=== PATIENT | male | born 1950 | race Caucasian/White ===

== ENCOUNTER 2020-04-10 10:01 | Emergency (ER) | payer MEDICARE, BC, SELFPAY ==
[2020-04-10 10:12] VITALS: BP 96/83; PULSE 92; RESP 18; TEMP 37.1; O2SAT 92; BMI 26.4
--- NOTE | 2020-04-10 10:18 | ECG_ITS ---
[facility] Test Date: 2020-04-10 Pat Name: Chinedu Petty Department: Room: Gender: Male Director Surgical: : 1950 Requested By: Aisha Eduardo Order Number: [id number] Vaishnavi MD: Nicole Hughes M.D. Measurements Intervals [place] Rate: 83 P: 50 [place]: 134 QRS: -23 QRSD: 105 T: 40 QT: 369 QTc: 434 Interpretive Statements SINUS RHYTHM BORDERLINE LEFT AXIS DEVIATION [QRS AXIS < -20] INCOMPLETE RIGHT BUNDLE BRANCH BLOCK [90+ ms QRS DURATION, TERMINAL R IN V1/V2, 40+ ms S IN I/aVL/V4/V5/V6] Compared to ECG 07/22/2018 09:04:01 Incomplete right bundle-branch block now present Sinus tachycardia no longer present ST (T wave) deviation no longer present Electronically Signed On 04-10-2020 16:32:08 CDT by Nicole Hughes M.D. [id number]
--- NOTE | 2020-04-10 10:18 | XRR_ITS ---
PROCEDURE INFORMATION: Exam: XR Chest, 1 View Exam date and time: 04/10/2020 10:26 AM Age: 69 years old Clinical indication: Other: Syncope TECHNIQUE: Imaging protocol: XR of the chest Views: Frontal portable upright view of the chest. COMPARISON: CT chest con [id number] 04/21/2019 9:06 AM FINDINGS: Lungs: The pulmonary vasculature is normal. Left medial infrahilar pulmonary consolidative density. Mild left basilar pulmonary subsegmental atelectasis. Lateral bilateral mid-lower lung zone subsegmental atelectasis. Pleural space: No pleural effusion. No pneumothorax. Heart/Mediastinum: The heart is normal in size and contour. Mediastinum: Stable. Vasculature: Mild aortic arch atherosclerotic calcification without ectasia. Bones/joints: Stable. XR/XR chest 1V portable [id number] IMPRESSION: 1. Left medial infrahilar pulmonary consolidative density. Pneumonitis is difficult to exclude. Clinical correlation is recommended. 2. Mild left basilar pulmonary subsegmental atelectasis. 3. Lateral bilateral mid-lower lung zone subsegmental atelectasis.
[2020-04-10 11:09] VITALS: BP 86/71; PULSE 87; RESP 19; O2SAT 90
[2020-04-10 11:12] LABS: Basophils % 0.2 %; Hematocrit 39.6 % (42.0-52.0); Hemoglobin 12.6 g/dL (11.7-16.6); Lymphocytes # 0.9 10^3/uL (0.8-4.8); Lymphocytes % 18.8 %; Mean Corpuscular HGB Conc 31.8 g/dL (30.0-36.0); Mean Corpuscular Hemoglobin 30.4 pg (28.0-34.0); Mean Corpuscular Volume 95.7 fL (80-94); Monocytes # 0.3 10^3/uL (0.2-0.9); Monocytes % 6.5 %; Neutrophils # 3.42 10^3/uL (1.8-7.7); Neutrophils % 74.1 %; Nucleated Red Blood Cells % 0 %; Platelet Count 140 10^3/cmm (130-400); Red Blood Count 4.14 10^6/uL (4.1-5.3); Red Cell Distribution Width 13.2 % (12.1-15.1); White Blood Count 4.6 10^3/uL (4.0-10.0)
[2020-04-10] MEDS: sodium chloride 0.9% 500 ML 999 ML IV (11:14)
[2020-04-10] MEDS: dexamethasone 10 mg/mL INJ IVP (11:14)
[2020-04-10 11:26] LABS: Fibrinogen 615 mg/dL (174-498)
[2020-04-10 11:29] LABS: D Dimer 2.23 ug/mIFEU (0-0.59)
--- NOTE | 2020-04-10 11:30 | PC.NURSE ---
Spoke with pt's Cherise regarding pt status. Cherise notified at the time of speaking with her that pt labs had not come back yet and there was no disposition. Requested she call back in an hour or so for more information.
[2020-04-10 11:32] LABS: Lactate (Lactic Acid level) 0.8 mmol/L (0.5-2.2)
[2020-04-10 11:38] LABS: Influenza A by IFA Negative (Negative); Influenza B by IFA Negative (Negative)
--- NOTE | 2020-04-10 11:38 | CT_ITS ---
WS: [id number] CTA OF THE CHEST WITH PULMONARY EMBOLISM PROTOCOL TECHNIQUE: High-resolution contrast enhanced CTA of the chest with coronal and sagittal reformatted i mages with pulmonary embolism protocol. MIP images are also reviewed. CLINICAL INFORMATION: COVID + COMPARISON: None. DLP: 579.[address] scans at [facility] use at least one of these dose optimization techniques: automat ed exposure control; mA and/or kV adjustment per patient size (includes targeted exams where dose is matched to clinical indication); or iterative reconstruction. FINDINGS: Proximal main pulmonary arteries are normal. Normal segmental and subsegmental pulmonary arteries. No evidence for pulmonary embolus. Normal caliber thoracic aorta. A few prominent anterior mediastinal and peribronchial lymph nodes likely reactive. Moderate chronic emphysematous changes. A few scattered hazy groundglass infiltrates in the right upp er lobe, right lower lobe, and left lower lobe. Recommend correlation for viral pneumonia. No axillar y lymphadenopathy. Adrenal glands are normal. Partially visualized hepatic cyst. Gallbladder partially visualized and co ntracted. Small esophageal hiatal hernia. Partially visualized left renal cyst. CT/CT angio chest PE protcl [id number] IMPRESSION: 1. No evidence for pulmonary embolus. 2. A few scattered hazy groundglass infiltrates in the right upper lobe, right lower lobe, left lower lobe posteriorly.Correlation for viral pneumonia. 3. No pleural fluid. 4. Normal caliber thoracic aorta. 5. A few enlarged peribronchial lymph nodes likely reactive. 6. Small esophageal hiatal hernia.
--- NOTE | 2020-04-10 11:38 | ED_ITS ---
Documented by User: HARVEY Silverman 04/11/20 07:08 HPI - COVID General: Chief Complaint: Fever Stated Complaint: covid +/fever Time Seen by Provider: 04/10/20 10:04 Triage information: No fever, cough or shortness of breath . No known COVID + exposure last 14 days History of Present Illness: HPI Narrative: Pleasant 69-year-old male patient presents to the emergency department with 2-week onset of cough congestion. Positive Covid results, [facility] SARS PCR 04/09/2020. He reports continued cough, shortness of breath, not feeling well. Oxygen saturation on room air 89%. He states continues to cough, unable to take deep breaths. MD complaint: known COVID positive Prior covid testing: yes, results known Prior testing date: 04/09/20 COVID 19 common symptoms: positive fever(s), chills, cough, productive cough (gren to clear), dyspnea, fatigue and body aches; negative headache(s), throat pain, nausea or vomiting COVID 19 other sytmptoms: negative chest pain Onset (ago): week(s) (2) Severity: moderate Treatment prior to arrival: acetaminophen and ibuprofen COVID Results: No Data to Display Review of Systems General: Reports: 10 or more systems reviewed and unremarkable except in HPI and below Const: Reports: fever(s), chills, body aches, fatigue and malaise Eyes: Denies: blurry vision or eye redness ENMT: Denies: throat pain, dental pain or disequilibrium Card: Denies: chest pain, palpitations or irregular heart rhythm Resp: Reports: dyspnea, productive cough (gren to clear), pain on inspiration and chest congestion GI: Denies: abdominal pain, nausea or vomiting : Denies: dysuria Musc: Denies: back pain Skin/Breast: Denies: rash or pruritus Neuro: Denies: headache(s), weakness in extremities or behavioral changes Benito/Lymph: Denies: easy bruising PFSH ED PFSH: Family History Mother CAD (coronary artery disease) Brother Cancer Father Heart disease Social History Smoking and tobacco status: former smoker Quit status (tobacco): has quit using tobacco Year quit tobacco: 1991 Alcohol intake: current Alcohol intake frequency: 0-2 Drinks per Day History of recent travel: No Physical Exam Const: COMMON NORMALS: no acute distress, patient oriented x3, healthy appearing and alert GENERAL APPEARANCE: cooperative, comfortable and ill appearing; not well hydrated NUTRITIONAL APPEARANCE: thin ORIENTATION/CONSCIOUSNESS: Yes awake, Yes oriented to person, Yes oriented to place and Yes oriented to time HENMT: COMMON NORMALS: normocephalic, Normal external nose present and moist oral mucous membranes HEAD & SCALP: normocephalic NOSE: Normal external nose present Eye: COMMON NORMALS: Equal, round and reactive pupils present and EOMs intact bilaterally GENERAL EYE: appearance normal, both eyes and all related structures PUPIL: Yes Equal, round and reactive pupils present Neck/C-Spine: COMMON NORMALS: full ROM and no lymphadenopathy GENERAL: Yes normal visual inspection and Yes trachea midline CERVICAL SPINE: Yes cervical ROM normal Lymph: LYMPHATIC: no lymphadenopathy noted Chest: COMMONS NORMALS: normal inspection of the chest and normal palpation of entire chest wall Resp: COMMON NORMALS: normal respiratory effort EFFORT & INSPECTION: Yes able to speak in complete sentences AUSCULTATION: wheezes scattered wheezes Cardio: COMMON NORMALS: regular rhythm, S1 normal heart sound present, S2 normal heart sound present and Peripheral pulses 2+ throughout RHYTHM: regular rhythm HEART SOUNDS: S1 normal heart sound present and S2 normal heart sound present PERIPHERAL PULSES: Peripheral pulses 2+ throughout GI: COMMON NORMALS: Soft to palpation and non-tender INSPECTION: Yes normal to inspection PALPATION: Yes Soft to palpation : COMMON NORMALS: Yes no CVA tenderness BLADDER/KIDNEY EXAM: Yes no CVA tenderness Back/Pelvis: COMMON NORMALS: no CVA tenderness and thoracic and lumbar spine normal to inspection Extremity: COMMON NORMALS: normal to inspection and capillary refill normal Neuro: COMMON NORMALS: patient oriented x3 and no focal motor deficits SENSORIUM/ORIENTATION: Yes alert, Yes oriented to person, Yes oriented to place and Yes oriented to time Psych: COMMON NORMALS: mental status grossly normal, Normal thought process present and cooperative ACTIVITY/MOTOR BEHAVIOR: Yes appropriate eye contact THOUGHT PROCESS: Normal thought process present Skin: COMMON NORMALS: no rashes or lesions noted and turgor normal GENERAL SKIN EXAM: no rashes or lesions noted and turgor normal Course ED course: Pleasant 69-year-old male patient presents to the emergency department with hypoxia related to COVID-19 illness. D-dimer was found to be elevated along with fibrinogen, CRP, ESR, troponin levels. 2-hour troponin level with negative delta noted. Oxygen saturation remained 89 to 90% in the ED. Patient placed on 2 L nasal cannula with oxygen saturation increased to 94%. I discussed my concern in regards to his illness. Noted hypoxia with elevated coagulation factors noted. He agrees to stay for IV remdesivir. Patient received dexamethasone 10 mg IV here in the ED. Home medication includes Pepcid. EKG series without changes. Case discussed with Dr. Irby. Transfer of care to Dr. Irby as patient will require hospitalization. Patient agrees with need for hospitalization and agrees with treatment. 1700 -patient reports he did not wish to be transferred to another facility due to bed unavailability here at [facility]. He states does not want to be away from his . Oxygen saturation on 2 L nasal cannula maintaining 96 to 97%. He has tolerated p.o. fluids here in the ED without nausea vomiting. He did receive dose of Remdesivir here in the ED. He agrees to return to the emergency de partment if he develops hypoxia, worsening symptoms such as nausea vomiting, inability to catch his breath. He also agrees to follow-up with his primary care provider in 2 to 3 days. He was taken off work until follow-up, advised to remain on quarantine. Verbalized understanding. Vital Signs: Vital signs: Vital Signs Temperature 98.8 F 04/10/20 10:12 Pulse Rate 92 04/10/20 19:58 Respiratory Rate 22 H 04/10/20 19:58 Blood Pressure 115/78 04/10/20 19:58 Pulse Oximetry 100 04/10/20 19:58 [facility] - COVID Lab Data Result diagrams: 04/10/20 10:38 04/10/20 10:38 Labs: Lab Results 04/10/20 04/10/20 04/10/20 Range/Units 10:38 10:38 10:38 WBC (4.0-10.0) 10^3/uL RBC (4.1-5.3) 10^6/uL Hgb (11.7-16.6) g/dL Hct (42.0-52.0) % MCV (80-94) fL MCH (28.0-34.0) pg MCHC (30.0-36.0) g/dL RDW (12.1-15.1) % Plt Count (130-400) 10^3/cmm MPV (7.4-10.4) fL Neut % (Auto) % Lymph % (Auto) % Caroline % (Auto) % Eos % (Auto) % Baso % (Auto) % Neut # (Auto) (1.8-7.7) 10^3/uL Lymph # (Auto) (0.8-4.8) 10^3/uL Caroline # (Auto) (0.2-0.9) 10^3/uL Eos # (Auto) (0.0-0.8) 10^3/uL Baso # (Auto) (0.0-0.1) 10^3/uL Nucleated RBC % (auto) % Nucleated RBCs # /100WBC ESR 43 H (0-10) mm/hr Fibrinogen 615 H (174-498) mg/dL D-Dimer 2.23 H (0-0.59) ug/mIFEU Sodium 139 (136-145) mmol/L Potassium 4.6 (3.5-5.1) mmol/L Chloride 101 (98-107) mmol/L Carbon Dioxide 27 (22-29) mmol/L Anion Gap 15.6 (5-19) BUN 18 (8-23) mg/dL Creatinine 1.1 (0.7-1.2) mg/dL GFR Calculation Not Reportable Glucose 99 (65-115) mg/dL Calculated Osmolality 290 (285-295) mOsm/kg Lactate (0.5-2.2) mmol/L Calcium 8.2 L (8.5-10.5) mg/dL Ferritin 700 H (30-400) ng/mL Total Bilirubin 0.4 (0.15-1.2) mg/dL AST 32 (0-40) U/L ALT 21 (0-41) U/L Alkaline Phosphatase 63 (40-130) IU/L Troponin T Baseline (0-15) ng/L Troponin T 120 Minute (0-15) ng/L Delta Troponin T (0-10) ABS# C-Reactive Protein 46.3 H (0.0-4.9) mg/L Total Protein 5.9 L (6.6-8.7) g/dL Albumin 4.1 (3.5-5.2) g/dL Globulin 1.8 (1.3-4.6) g/dL Procalcitonin 0.19 (0-0.5) ng/mL Influenza Type A Ag (Negative) Influenza Type B Ag (Negative) 04/10/20 04/10/20 04/10/20 Range/Units 10:38 10:38 10:38 WBC 4.6 (4.0-10.0) 10^3/uL RBC 4.14 (4.1-5.3) 10^6/uL Hgb 12.6 (11.7-16.6) g/dL Hct 39.6 L (42.0-52.0) % MCV 95.7 H (80-94) fL MCH 30.4 (28.0-34.0) pg MCHC 31.8 (30.0-36.0) g/dL RDW 13.2 (12.1-15.1) % Plt Count 140 (130-400) 10^3/cmm MPV 10.0 (7.4-10.4) fL Neut % (Auto) 74.1 % Lymph % (Auto) 18.8 % Caroline % (Auto) 6.5 % Eos % (Auto) 0.0 % Baso % (Auto) 0.2 % Neut # (Auto) 3.42 (1.8-7.7) 10^3/uL Lymph # (Auto) 0.9 (0.8-4.8) 10^3/uL Caroline # (Auto) 0.3 (0.2-0.9) 10^3/uL Eos # (Auto) 0.0 (0.0-0.8) 10^3/uL Baso # (Auto) 0.0 (0.0-0.1) 10^3/uL Nucleated RBC % (auto) 0 % Nucleated RBCs # 0.0 /100WBC ESR (0-10) mm/hr Fibrinogen (174-498) mg/dL D-Dimer (0-0.59) ug/mIFEU Sodium (136-145) mmol/L Potassium (3.5-5.1) mmol/L Chloride (98-107) mmol/L Carbon Dioxide (22-29) mmol/L Anion Gap (5-19) BUN (8-23) mg/dL Creatinine (0.7-1.2) mg/dL GFR Calculation Glucose (65-115) mg/dL Calculated Osmolality (285-295) mOsm/kg Lactate 0.8 (0.5-2.2) mmol/L Calcium (8.5-10.5) mg/dL Ferritin (30-400) ng/mL Total Bilirubin (0.15-1.2) mg/dL AST (0-40) U/L ALT (0-41) U/L Alkaline Phosphatase (40-130) IU/L Troponin T Baseline 16 H (0-15) ng/L Troponin T 120 Minute (0-15) ng/L Delta Troponin T (0-10) ABS# C-Reactive Protein (0.0-4.9) mg/L Total Protein (6.6-8.7) g/dL Albumin (3.5-5.2) g/dL Globulin (1.3-4.6) g/dL Procalcitonin (0-0.5) ng/mL Influenza Type A Ag (Negative) Influenza Type B Ag (Negative) 04/10/20 04/10/20 Range/Units 10:38 12:35 WBC (4.0-10.0) 10^3/uL RBC (4.1-5.3) 10^6/uL Hgb (11.7-16.6) g/dL Hct (42.0-52.0) % MCV (80-94) fL MCH (28.0-34.0) pg MCHC (30.0-36.0) g/dL RDW (12.1-15.1) % Plt Count (130-400) 10^3/cmm MPV (7.4-10.4) fL Neut % (Auto) % Lymph % (Auto) % Caroline % (Auto) % Eos % (Auto) % Baso % (Auto) % Neut # (Auto) (1.8-7.7) 10^3/uL Lymph # (Auto) (0.8-4.8) 10^3/uL Caroline # (Auto) (0.2-0.9) 10^3/uL Eos # (Auto) (0.0-0.8) 10^3/uL Baso # (Auto) (0.0-0.1) 10^3/uL Nucleated RBC % (auto) % Nucleated RBCs # /100WBC ESR (0-10) mm/hr Fibrinogen (174-498) mg/dL D-Dimer (0-0.59) ug/mIFEU Sodium (136-145) mmol/L Potassium (3.5-5.1) mmol/L Chloride (98-107) mmol/L Carbon Dioxide (22-29) mmol/L Anion Gap (5-19) BUN (8-23) mg/dL Creatinine (0.7-1.2) mg/dL GFR Calculation Glucose (65-115) mg/dL Calculated Osmolality (285-295) mOsm/kg Lactate (0.5-2.2) mmol/L Calcium (8.5-10.5) mg/dL Ferritin (30-400) ng/mL Total Bilirubin (0.15-1.2) mg/dL AST (0-40) U/L ALT (0-41) U/L Alkaline Phosphatase (40-130) IU/L Troponin T Baseline (0-15) ng/L Troponin T 120 Minute 14.22 (0-15) ng/L Delta Troponin T -1.78 L (0-10) ABS# C-Reactive Protein (0.0-4.9) mg/L Total Protein (6.6-8.7) g/dL Albumin (3.5-5.2) g/dL Globulin (1.3-4.6) g/dL Procalcitonin (0-0.5) ng/mL Influenza Type A Ag Negative (Negative) Influenza Type B Ag Negative (Negative) COVID Results: No Data to Display Imaging Data CXR: Radiologist's impression: [address] [id number] XRay Report Signed Patient: Chinedu Petty Unit #: [id number] : 1950 Age/Sex: 69 / M ADM Date: 04/10/20 Loc: ER Room/Bed: Attending Dr: Ordering Provider/Ordering MD: Aisha Echevarria Date of Service: 04/10/20 Procedure(s): XR chest 1V portable [id number] Accession Number(s): [id number] Report Number: [id number] PROCEDURE INFORMATION: Exam: XR Chest, 1 View Exam date and time: 04/10/2020 10:26 AM Age: 69 years old Clinical indication: Other: Syncope TECHNIQUE: Imaging protocol: XR of the chest Views: Frontal portable upright view of the chest. COMPARISON: CT chest wo con [id number] 04/21/2019 9:06 AM FINDINGS: Lungs: The pulmonary vasculature is normal. Left medial infrahilar pulmonary consolidative density. Mild left basilar pulmonary subsegmental atelectasis. Lateral bilateral mid-lower lung zone subsegmental atelectasis. Pleural space: No pleural effusion. No pneumothorax. Heart/Mediastinum: The heart is normal in size and contour. Mediastinum: Stable. Vasculature: Mild aortic arch atherosclerotic calcification without ectasia. Bones/joints: Stable. XR/XR chest 1V portable [id number] IMPRESSION: 1. Left medial infrahilar pulmonary consolidative density. Pneumonitis is difficult to exclude. Clinical correlation is recommended. 2. Mild left basilar pulmonary subsegmental atelectasis. 3. Lateral bilateral mid-lower lung zone subsegmental atelectasis. Dictated By: Huseyin Pretty MD Signed By: Huseyin Pretty MD Signed Date/Time: 04/10/20 105 DD/ 105 CT Chest: Radiologist's impression: [place] [id number] CT Scan Report Signed Patient: Chinedu Petty Unit #: [id number] : 1950 Acct#:O [id number] Age/Sex: 69 / M ADM Date: 1 Loc: ER Room/Bed: Attending Dr: Ordering Provider/Ordering MD: Aisha Echevarria Date of Service: 04/10/20 Procedure(s): CT angio chest PE protcl [id number] Accession Number(s): [id number] Report Number: [id number] WS: [id number] CTA OF THE CHEST WITH PULMONARY EMBOLISM PROTOCOL TECHNIQUE: High-resolution contrast enhanced CTA of the chest with coronal and sagittal reformatted images with pulmonary embolism protocol. MIP images are also reviewed. CLINICAL INFORMATION: COVID + COMPARISON: None. DLP: 579.[address] scans at [facility] use at least one of these dose optimization techniques: automated exposure control; mA and/or kV adjustment per patient size (includes targeted exams where dose is matched to clinical indication); or iterative reconstruction. FINDINGS: Proximal main pulmonary arteries are normal. Normal segmental and subsegmental pulmonary arteries. No evidence for pulmonary embolus. Normal caliber thoracic aorta. A few prominent anterior mediastinal and peribronchial lymph nodes likely reactive. Moderate chronic emphysematous changes. A few scattered hazy groundglass infiltrates in the right upper lobe, right lower lobe, and left lower lobe. Recommend correlation for viral pneumonia. No axillary lymphadenopathy. Adrenal glands are normal. Partially visualized hepatic cyst. Gallbladder partially visualized and contracted. Small esophageal hiatal hernia. Partially visualized left renal cyst. CT/CT angio chest PE protcl [id number] IMPRESSION: 1. No evidence for pulmonary embolus. 2. A few scattered hazy groundglass infiltrates in the right upper lobe, right lower lobe, left lower lobe posteriorly.Correlation for viral pneumonia. 3. No pleural fluid. 4. Normal caliber thoracic aorta. 5. A few enlarged peribronchial lymph nodes likely reactive. 6. Small esophageal hiatal hernia. Dictated By: Don Jacinto MD Signed By: Don Jacinto MD Signed Date/Time: 04/10/201327 DD/ 132 EKG Data EKG 1: EKG interpretation date: 04/10/20 EKG interpretation time: 10:45 Other EKG comments: Sinus rhythm, pattern consistent with pulmonary disease, incomplete right bundle branch block, abnormal ECG EKG 2: EKG interpretation date: 04/10/20 EKG interpretation time: 13:29 Other EKG comments: Sinus rhythm, low QRS voltage in pericardial leads, pattern consistent with pulmonary disease, abnormal ECG, unconfirmed report Discharge Plan Discharge Patient Disposition: Home Clinical Impression: Acute viral bronchitis, COVID-19, Hypoxia Condition: Stable Prescriptions: New dexamethasone 6 mg tablet 6 mg PO DAILY Qty: 7 RF: 0 Continued albuterol sulfate 2.5 mg /3 mL (0.083 %) solution for nebulization 2.5 mg INHALATION Q6H PRNRF: 0 aspirin [Adult Aspirin Regimen] 81 mg tablet,delayed release (DR/EC) 81 mg PO DAILY RF: 0 etodolac 400 mg tablet 400 mg PO BID PRNRF: 0 Proair Digihaler 90 mcg/actuation aero powdr breath act w/sensor 90 mcg INHALATION Q6H PRNRF: 0 famotidine [Pepcid] 20 mg tablet 20 mg PO DAILY RF: 0 calcium carbonate [Tums] 200 mg calcium (500 mg) tablet,chewable 200 mg PO BID PRNRF: 0 Discharge Orders: Discharge Order (Routine); Ordered 04/10/20 Ordered By: Kia Irby Referrals: Chetan Taveras MD [Primary Care Provider] - Discharge Diet: Usual diet Discharge Activity: Limit activity as instructed Patient Instructions: Viral Syndrome (ED), Hypoxia (ED) Activity Restrictions/Additional Instructions: Return to the emergency department if you develop low oxygen saturation, 89 to 90% on 2 L nasal cannula, supplemental oxygen Take dexamethasone 6 mg daily for 7 days Follow-up by Dr. Taveras [facility] in 2 days for reevaluation Remain quarantined at home Return to the emergency department if you develop difficulty breathing, inability to catch her breath, coughing up blood or other concerning symptoms such as nausea vomiting Continue Ventolin/albuterol inhaler, 2 puffs every 4 hours as needed for shortness of breath/cough You will need to rest at home, no work until cleared by your primary care provider. Stand Alone Forms: Work/School Release Discharge Date/Time: 04/10/20 19:50 Coding Level of Care Code ED Tool And Die Inspector for Chg Fwd Exam Comprehensive Documented by User: Kia Irby MD 04/10/20 21:47 HPI - COVID General: Chief Complaint: Fever Stated Complaint: covid +/fever Time Seen by Provider: 04/10/20 10:04 COVID Results: No Data to Display PFSH ED PFSH: Family History Mother CAD (coronary artery disease) Brother Cancer Father Heart disease Social History Smoking and tobacco status: former smoker Quit status (tobacco): has quit using tobacco Year quit tobacco: 1991 Alcohol intake: current Alcohol intake frequency: 0-2 Drinks per Day History of recent travel: No Course Vital Signs: Vital signs: Vital Signs Temperature 98.8 F 04/10/20 10:12 Pulse Rate 92 04/10/20 19:58 Respiratory Rate 22 H 04/10/20 19:58 Blood Pressure 115/78 04/10/20 19:58 Pulse Oximetry 100 04/10/20 19:58 MDM - COVID Lab Data Result diagrams: 04/10/20 10:38 04/10/20 10:38 Labs: Lab Results 04/10/20 04/10/20 04/10/20 Range/Units 10:38 10:38 10:38 WBC (4.0-10.0) 10^3/uL RBC (4.1-5.3) 10^6/uL Hgb (11.7-16.6) g/dL Hct (42.0-52.0) % MCV (80-94) fL MCH (28.0-34.0) pg MCHC (30.0-36.0) g/dL RDW (12.1-15.1) % Plt Count (130-400) 10^3/cmm MPV (7.4-10.4) fL Neut % (Auto) % Lymph % (Auto) % Caroline % (Auto) % Eos % (Auto) % Baso % (Auto) % Neut # (Auto) (1.8-7.7) 10^3/uL Lymph # (Auto) (0.8-4.8) 10^3/uL Caroline # (Auto) (0.2-0.9) 10^3/uL Eos # (Auto) (0.0-0.8) 10^3/uL Baso # (Auto) (0.0-0.1) 10^3/uL Nucleated RBC % (auto) % Nucleated RBCs # /100WBC ESR 43 H (0-10) mm/hr Fibrinogen 615 H (174-498) mg/dL D-Dimer 2.23 H (0-0.59) ug/mIFEU Sodium 139 (136-145) mmol/L Potassium 4.6 (3.5-5.1) mmol/L Chloride 101 (98-107) mmol/L Carbon Dioxide 27 (22-29) mmol/L Anion Gap 15.6 (5-19) BUN 18 (8-23) mg/dL Creatinine 1.1 (0.7-1.2) mg/dL GFR Calculation Not Reportable Glucose 99 (65-115) mg/dL Calculated Osmolality 290 (285-295) mOsm/kg Lactate (0.5-2.2) mmol/L Calcium 8.2 L (8.5-10.5) mg/dL Ferritin 700 H (30-400) ng/mL Total Bilirubin 0.4 (0.15-1.2) mg/dL AST 32 (0-40) U/L ALT 21 (0-41) U/L Alkaline Phosphatase 63 (40-130) IU/L Troponin T Baseline (0-15) ng/L Troponin T 120 Minute (0-15) ng/L Delta Troponin T (0-10) ABS# C-Reactive Protein 46.3 H (0.0-4.9) mg/L Total Protein 5.9 L (6.6-8.7) g/dL Albumin 4.1 (3.5-5.2) g/dL Globulin 1.8 (1.3-4.6) g/dL Procalcitonin 0.19 (0-0.5) ng/mL Influenza Type A Ag (Negative) Influenza Type B Ag (Negative) 04/10/20 04/10/20 04/10/20 Range/Units 10:38 10:38 10:38 WBC 4.6 (4.0-10.0) 10^3/uL RBC 4.14 (4.1-5.3) 10^6/uL Hgb 12.6 (11.7-16.6) g/dL Hct 39.6 L (42.0-52.0) % MCV 95.7 H (80-94) fL MCH 30.4 (28.0-34.0) pg MCHC 31.8 (30.0-36.0) g/dL RDW 13.2 (12.1-15.1) % Plt Count 140 (130-400) 10^3/cmm MPV 10.0 (7.4-10.4) fL Neut % (Auto) 74.1 % Lymph % (Auto) 18.8 % Caroline % (Auto) 6.5 % Eos % (Auto) 0.0 % Baso % (Auto) 0.2 % Neut # (Auto) 3.42 (1.8-7.7) 10^3/uL Lymph # (Auto) 0.9 (0.8-4.8) 10^3/uL Caroline # (Auto) 0.3 (0.2-0.9) 10^3/uL Eos # (Auto) 0.0 (0.0-0.8) 10^3/uL Baso # (Auto) 0.0 (0.0-0.1) 10^3/uL Nucleated RBC % (auto) 0 % Nucleated RBCs # 0.0 /100WBC ESR (0-10) mm/hr Fibrinogen (174-498) mg/dL D-Dimer (0-0.59) ug/mIFEU Sodium (136-145) mmol/L Potassium (3.5-5.1) mmol/L Chloride (98-107) mmol/L Carbon Dioxide (22-29) mmol/L Anion Gap (5-19) BUN (8-23) mg/dL Creatinine (0.7-1.2) mg/dL GFR Calculation Glucose (65-115) mg/dL Calculated Osmolality (285-295) mOsm/kg Lactate 0.8 (0.5-2.2) mmol/L Calcium (8.5-10.5) mg/dL Ferritin (30-400) ng/mL Total Bilirubin (0.15-1.2) mg/dL AST (0-40) U/L ALT (0-41) U/L Alkaline Phosphatase (40-130) IU/L Troponin T Baseline 16 H (0-15) ng/L Troponin T 120 Minute (0-15) ng/L Delta Troponin T (0-10) ABS# C-Reactive Protein (0.0-4.9) mg/L Total Protein (6.6-8.7) g/dL Albumin (3.5-5.2) g/dL Globulin (1.3-4.6) g/dL Procalcitonin (0-0.5) ng/mL Influenza Type A Ag (Negative) Influenza Type B Ag (Negative) 04/10/20 04/10/20 Range/Units 10:38 12:35 WBC (4.0-10.0) 10^3/uL RBC (4.1-5.3) 10^6/uL Hgb (11.7-16.6) g/dL Hct (42.0-52.0) % MCV (80-94) fL MCH (28.0-34.0) pg MCHC (30.0-36.0) g/dL RDW (12.1-15.1) % Plt Count (130-400) 10^3/cmm MPV (7.4-10.4) fL Neut % (Auto) % Lymph % (Auto) % Caroline % (Auto) % Eos % (Auto) % Baso % (Auto) % Neut # (Auto) (1.8-7.7) 10^3/uL Lymph # (Auto) (0.8-4.8) 10^3/uL Caroline # (Auto) (0.2-0.9) 10^3/uL Eos # (Auto) (0.0-0.8) 10^3/uL Baso # (Auto) (0.0-0.1) 10^3/uL Nucleated RBC % (auto) % Nucleated RBCs # /100WBC ESR (0-10) mm/hr Fibrinogen (174-498) mg/dL D-Dimer (0-0.59) ug/mIFEU Sodium (136-145) mmol/L Potassium (3.5-5.1) mmol/L Chloride (98-107) mmol/L Carbon Dioxide (22-29) mmol/L Anion Gap (5-19) BUN (8-23) mg/dL Creatinine (0.7-1.2) mg/dL GFR Calculation Glucose (65-115) mg/dL Calculated Osmolality (285-295) mOsm/kg Lactate (0.5-2.2) mmol/L Calcium (8.5-10.5) mg/dL Ferritin (30-400) ng/mL Total Bilirubin (0.15-1.2) mg/dL AST (0-40) U/L ALT (0-41) U/L Alkaline Phosphatase (40-130) IU/L Troponin T Baseline (0-15) ng/L Troponin T 120 Minute 14.22 (0-15) ng/L Delta Troponin T -1.78 L (0-10) ABS# C-Reactive Protein (0.0-4.9) mg/L Total Protein (6.6-8.7) g/dL Albumin (3.5-5.2) g/dL Globulin (1.3-4.6) g/dL Procalcitonin (0-0.5) ng/mL Influenza Type A Ag Negative (Negative) Influenza Type B Ag Negative (Negative) COVID Results: No Data to Display Discharge Plan Discharge Patient Disposition: Home Clinical Impression: Acute viral bronchitis, COVID-19, Hypoxia Condition: Stable Prescriptions: New dexamethasone 6 mg tablet 6 mg PO DAILY Qty: 7 RF: 0 Continued albuterol sulfate 2.5 mg /3 mL (0.083 %) solution for nebulization 2.5 mg INHALATION Q6H PRNRF: 0 aspirin [Adult Aspirin Regimen] 81 mg tablet,delayed release (DR/EC) 81 mg PO DAILY RF: 0 etodolac 400 mg tablet 400 mg PO BID PRNRF: 0 Proair Digihaler 90 mcg/actuation aero powdr breath act w/sensor 90 mcg INHALATION Q6H PRNRF: 0 famotidine [Pepcid] 20 mg tablet 20 mg PO DAILY RF: 0 calcium carbonate [Tums] 200 mg calcium (500 mg) tablet,chewable 200 mg PO BID PRNRF: 0 Discharge Orders: Discharge Order (Routine); Ordered 04/10/20 Ordered By: Kia Irby Referrals: Chetan Taveras MD [Primary Care Provider] - Discharge Diet: Usual diet Discharge Activity: Limit activity as instructed Patient Instructions: Viral Syndrome (ED), Hypoxia (ED) Activity Restrictions/Additional Instructions: Return to the emergency department if you develop low oxygen saturation, 89 to 90% on 2 L nasal cannula, supplemental oxygen Take dexamethasone 6 mg daily for 7 days Follow-up by Dr. Taveras [facility] in 2 days for reevaluation Remain quarantined at home Return to the emergency department if you develop difficulty breathing, inability to catch her breath, coughing up blood or other concerning symptoms such as nausea vomiting Continue Ventolin/albuterol inhaler, 2 puffs every 4 hours as needed for shortness of breath/cough You will need to rest at home, no work until cleared by your primary care provider. Stand Alone Forms: Work/School Release Discharge Date/Time: 04/10/20 19:50 Coding Level of Care Code ED Tool And Die Inspector for Chg Fwd Exam Comprehensive
[2020-04-10 11:42] LABS: Procalcitonin 0.19 ng/mL (0-0.5)
[2020-04-10 11:44] LABS: Troponin(5th) Baseline 16 ng/L (0-15)
[2020-04-10 11:49] LABS: Erythrocyte Sedimentation Rate 43 mm/hr (0-10)
[2020-04-10 11:52] VITALS: BP 112/66; PULSE 82; RESP 17; O2SAT 90
[2020-04-10 11:54] LABS: Alanine Aminotransferase 21 U/L (0-41); Albumin Level 4.1 g/dL (3.5-5.2); Alkaline Phosphatase 63 IU/L (40-130); Anion Gap 15.6 (5-19); Aspartate Amino Transferase 32 U/L (0-40); Blood Urea Nitrogen 18 mg/dL (8-23); C Reactive Protein 46.3 mg/L (0.0-4.9); Calcium 8.2 mg/dL (8.5-10.5); Carbon Dioxide 27 mmol/L (22-29); Chloride 101 mmol/L (98-107); Ferritin 700 ng/mL (30-400); Globulin 1.8 g/dL (1.3-4.6); Glucose 99 mg/dL (65-115); Osmolality Calculated 290 mOsm/kg (285-295); Potassium 4.6 mmol/L (3.5-5.1); Sodium 139 mmol/L (136-145); Total Bilirubin 0.4 mg/dL (0.15-1.2); Total Protein 5.9 g/dL (6.6-8.7)
--- NOTE | 2020-04-10 12:18 | ECG_ITS ---
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 Measurements Intervals [place] Rate: 80 P: 57 NV: 133 QRS: -15 QRSD: 110 T: 42 QT: 393 QTc: 456 Interpretive Statements SINUS RHYTHM LOW QRS VOLTAGE IN PRECORDIAL LEADS [QRS DEFLECTION < 1.0 mV IN CHEST LEADS] INCOMPLETE RIGHT BUNDLE BRANCH BLOCK [90+ ms QRS DURATION, TERMINAL R IN V1/V2, 40+ ms S IN I/aVL/V4/V5/V6] Compared to ECG 04/10/2020 10:45:49 Low QRS voltage now present Electronically Signed On 04-10-2020 16:33:39 CDT by Nicole Hughes M.D. [id number]
[2020-04-10] MEDS: iohexol 350 mg/mL 100 mL Btl IV (13:07)
[2020-04-10 13:19] LABS: Troponin 5 2HR 14.22 ng/L (0-15); Troponin 5 2HR Delta -1.78 ABS# (0-10)
[2020-04-10 14:00] VITALS: BP 115/71; PULSE 76; RESP 20; O2SAT 90
--- NOTE | 2020-04-10 16:18 | ECG_ITS ---
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 Measurements Intervals [place] Rate: 76 P: 55 MN: 129 QRS: -18 QRSD: 105 T: 39 QT: 365 QTc: 413 Interpretive Statements SINUS RHYTHM LOW QRS VOLTAGE IN PRECORDIAL LEADS [QRS DEFLECTION < 1.0 mV IN CHEST LEADS] INCOMPLETE RIGHT BUNDLE BRANCH BLOCK [90+ ms QRS DURATION, TERMINAL R IN V1/V2, 40+ ms S IN I/aVL/V4/V5/V6] Compared to ECG 04/10/2020 13:28:04 No significant changes Electronically Signed On 04-10-2020 17:27:22 CDT by Nicole Hughes M.D. [id number]
[2020-04-10 17:52] VITALS: O2SAT 94
[2020-04-10 19:58] VITALS: BP 115/78; PULSE 92; RESP 22; O2SAT 100
--- NOTE | 2020-04-11 08:37 | DCPLANNER ---
police manager had message to schedule a follow up appointment for patient with primary care physician, Dr. Taveras at [facility]. police manager called the clinic, gave clinic patients information. police manager was told that clinic will call patient with appointment information.
== END 2020-04-10 19:50 | disposition home or self-care (01) ==
PROVIDERS: Nurse Practitioner Family; Emergency Provider Nurse Practitioner Family; PCP Family Medicine
DX: U07.1 COVID-19 (principal); J20.8 Acute bronchitis due to other specified organisms; R09.02 Hypoxemia; Z79.82 Long term (current) use of aspirin; Z87.891 Personal history of nicotine dependence
CPT/HCPCS: 12345; 71045; 71275; 80053; 82728; 83605; 84145; 84484; 85025; 85378; 85384; 85651; 86140; 87804; 93005; 96365; 96375; 99284; J1100; J7040; Q9967

== ENCOUNTER 2020-10-15 10:45 | Outpatient (CLI) | payer MEDICARE, BC, SELFPAY ==
--- NOTE | 2020-10-15 10:51 | MR_ITS ---
WS: [id number] MRI CERVICAL SPINE NONCONTRAST HISTORY: CERVICAL DISC DISORDER; NEUROPATHY COMPARISON: None available. Technique: Multiplanar, multisequence noncontrast imaging of the cervical spine. Very slight increase in the cervical lordosis. C4 retrolisthesis by 3 mm. No marrow edema or fracture . Moderate disc space narrowing and desiccation at C4-5 and C5-6 and C6-7. Signal within the cervical cord is normal. Visualized posterior fossa is unremarkable. Craniocervical junction, C1 and C2 relationship, odontoid process and soft tissues are normal. C2-C3: Normal. C3-C4: Very small central disc protrusion and mild bilateral foraminal narrowing due to osteophytes. C4-C5: Mild diffuse annular disc bulging and retrolisthesis of C4 encroaches upon the ventral cervica l cord but no displacement. Effacement of CSF and mild central stenosis. Disc osteophyte complexes co ntributing to mild bilateral foraminal stenosis, RIGHT greater than LEFT. C5-C6: Diffuse annular disc bulging and osteophytic ridging with this effacement of ventral CSF but n o displacement of the cord. Mild central stenosis with mild to moderate bilateral foraminal stenosis, RIGHT greater than LEFT. C6-C7: Diffuse annular disc bulging and osteophytic ridging. Mild central with moderate bilateral for aminal stenosis due to disc osteophyte disease. C7-T1: Normal. Paraspinal soft tissue are normal. MR/MR cervical spin wo con* [id number] IMPRESSION: 1. Mild central and bilateral foraminal stenosis at C4-5. 2. Mild central and moderate bilateral foraminal stenosis at C5-6 and C6-7. 3. No fractures.
== END 2020-10-15 10:46 | disposition home or self-care (01) ==
LOC: RADSHAW 10:50
PROVIDERS: PCP Family Medicine; Visit Provider Family Medicine
DX: M50.90 Cervical disc disorder, unspecified, unspecified cervical region (principal); G62.9 Polyneuropathy, unspecified; M48.02 Spinal stenosis, cervical region
CPT/HCPCS: 72141

== ENCOUNTER 2021-02-05 06:00 | Outpatient (RCR) | payer MEDICARE, BC, SELFPAY | END 2021-02-19 23:59 | disposition home or self-care (01) | LOC: SPT 06:00 | PROVIDERS: PCP Family Medicine; Referring Provider Family Medicine; Visit Provider Family Medicine | DX: R42 Dizziness and giddiness (principal); H81.10 Benign paroxysmal vertigo, unspecified ear | CPT/HCPCS: 95992; 97162 ==

== ENCOUNTER → 2022-01-09 11:00 | Outpatient (BNVA) | payer MEDICARE, BC, SELFPAY | PROVIDERS: PCP Family Medicine; Visit Provider Clinical Nurse Specialist Adult Health | DX: Z01.89 Encounter for other specified special examinations (principal); J02.9 Acute pharyngitis, unspecified; J06.9 Acute upper respiratory infection, unspecified; J20.8 Acute bronchitis due to other specified organisms | CPT/HCPCS: 87071 ==

== ENCOUNTER → 2022-01-09 11:00 | Outpatient (BNVA) | payer MEDICARE, BC, SELFPAY | PROVIDERS: PCP Family Medicine; Visit Provider Clinical Nurse Specialist Adult Health | DX: J02.9 Acute pharyngitis, unspecified (principal); J06.9 Acute upper respiratory infection, unspecified; J20.8 Acute bronchitis due to other specified organisms | CPT/HCPCS: 87071; 87880 ==

== ENCOUNTER → 2022-08-14 08:59 | Outpatient (BNVA) | payer MEDICARE, BC, SELFPAY | PROVIDERS: PCP Family Medicine; Visit Provider Family Medicine | DX: Z00.00 Encounter for general adult medical examination without abnormal findings (principal); R35.1 Nocturia; E78.5 Hyperlipidemia, unspecified | CPT/HCPCS: 80053; 80061; 84153 ==

== ENCOUNTER → 2023-07-16 07:17 | Outpatient (BNVA) | payer MEDICARE, BC, SELFPAY | PROVIDERS: PCP Family Medicine; Visit Provider Family Medicine | DX: R21 Rash and other nonspecific skin eruption (principal) | CPT/HCPCS: 80053; 85025 ==